=== PATIENT | male | born 1965 | race Caucasian/White ===

== ENCOUNTER → 2020-12-20 09:48 | Outpatient (CLI) | payer OTHER, SELFPAY ==
--- NOTE | 2020-12-20 | DI.RAD.S_ITS ---
PROCEDURE: XR HAND RT 2V INDICATIONS: Hand Pain TECHNIQUE: 3 views of the hand(s) acquired. COMPARISON: None. FINDINGS: Bones: No fracture. Distal radioulnar joint degeneration. Scattered degenerative subchondral sclerosis and spurring. First CMC and triscaphe joint degeneration Soft tissues: No suspicious soft tissue calcifications. IMPRESSION: Scattered degenerative changes as above. If further evaluation of the tendons/soft tissues is warranted, MRI could be performed. Dictated by: Spencer Carrillo M.D. on 12/20/2020 at 11:02 Approved by: Spencer Carrillo M.D. on 12/20/2020 at 11:36
--- NOTE | 2020-12-20 | DI.RAD.S_ITS ---
PROCEDURE: XR HAND LT 2V INDICATIONS: Hand Pain TECHNIQUE: 3 views of the hand(s) acquired. COMPARISON: None. FINDINGS: Bones: No fracture. Scattered degenerative subchondral sclerosis and spurring. Anatomic alignment. Distal radioulnar joint degeneration noted. Minimal ulnar minus variance. No definite erosions seen. Narrowing of the 1st CMC joint space. Soft tissues: No suspicious soft tissue calcifications. IMPRESSION: Degenerative changes as above. Dictated by: Spencer Carrillo M.D. on 12/20/2020 at 10:59 Approved by: Spencer Carrillo M.D. on 12/20/2020 at 11:02
== END ==
PROVIDERS: PCP Physician Assistant
DX: M79.641 Pain in right hand (principal); M79.642 Pain in left hand; M19.042 Primary osteoarthritis, left hand; M19.041 Primary osteoarthritis, right hand; M18.11 Unilateral primary osteoarthritis of first carpometacarpal joint, right hand
CPT/HCPCS: 73120